=== PATIENT | male | born 1935 | race African-American/Black ===

== ENCOUNTER 2023-04-26 09:40 | Emergency (ER) | payer OTHER, BC ==
[2023-04-26 10:02] VITALS: BP 173/83; PULSE 85; RESP 20; TEMP 98.2; BMI 26.8
[2023-04-26 11:04] LABS: HEMATOCRIT 39.2 % (35.4-49); HEMOGLOBIN 13.4 G/dL (11.7-16.9); MCH 32.9 pg (25.7-33.7); MCHC 34.2 g/dl (32.0-35.9); MEAN CELL VOLUME 96.4 fl (80-96); PLATELET COUNT 134.7 10^3/uL (134-434); RBC 4.07 10^6/uL (4.00-5.60); RDW 13.5 % (11.9-15.9); WHITE BLOOD COUNT 4.7 10^3/uL (4.0-10.8)
[2023-04-26 11:06] LABS: PLATELET ESTIMATE ADEQUATE
[2023-04-26 11:11] LABS: ALBUMIN 4.2 g/dl (3.4-5.0); BILIRUBIN,TOTAL 0.4 mg/dl (0.2-1); BLOOD UREA NITROGEN 24.5 mg/dl (7-18); CALCIUM 9.3 mg/dl (8.5-10.1); CREATININE 1.3 mg/dl (0.6-1.3); POTASSIUM 4.4 mmol/L (3.5-5.1); SGOT/AST 18.7 U/L (15-37); SGPT/ALT 14.4 U/L (7-52); TOT PROT 6.5 g/dl (6.4-8.2)
== END 2023-04-26 11:59 | disposition home or self-care (01) ==
LOC: FER 09:40
DX: R07.89 Other chest pain (principal)
CPT/HCPCS: 36415; 71045-TC-FY; 80053; 82550; 82553; 84484; 85027; 93005; 99285-25